=== PATIENT | female | born 1980 | race Caucasian/White ===

== ENCOUNTER → 2020-01-15 14:36 | Outpatient (BNVA) | payer OTHER, SELFPAY | PROVIDERS: Family Provider Internal Medicine; PCP Internal Medicine; Visit Provider Nurse Practitioner Family | DX: Z20.828 Contact with and (suspected) exposure to other viral communicable diseases (principal) | CPT/HCPCS: 87635 ==

== ENCOUNTER 2020-03-05 06:33 | Emergency (ER) | payer SELFPAY ==
--- NOTE | 2020-03-05 06:36 | W.ED.ANXIETY ---
HPI - Anxiety General: Chief Complaint: Allergic Reaction Stated Complaint: allergic rxn Time Seen by Provider: 03/05/20 06:34 Source: patient Mode of arrival: ambulatory Limitations: no limitations History of Present Illness: HPI narrative: 40-year-old female states that she started having itching all over along with feeling like she had shortness of breath. Patient states she believes she is having allergic reaction to something but not sure what it is. She does have a rash. She is quite anxious. Denies any worsening improving factors. Denies any chest pain at this time. She denies any fever. Associated symptoms: Deny chest pain, chills, fever(s), headache(s), nausea or vomiting Review of Systems Const: Denies: fever(s), chills, body aches or change in appetite Eyes: Denies: blurry vision or eye discomfort ENMT: Denies: throat pain or dental pain Card: Denies: chest pain Resp: Denies: dyspnea GI: Denies: abdominal pain, nausea, vomiting or diarrhea : Denies: dysuria Musc: Denies: neck pain or back pain Skin/Breast: Reports: rash Neuro: Denies: headache(s) Psych: Denies: depression Catrachito/Lymph: Denies: easy bruising All/Imm: Denies: urticaria Physical Exam Const: COMMON NORMALS: no acute distress, patient oriented x3 and healthy appearing HENMT: COMMON NORMALS: normocephalic and atraumatic HEAD & SCALP: normocephalic and atraumatic Eye: COMMON NORMALS: Equal, round and reactive pupils present and EOMs intact bilaterally PUPIL: Yes Equal, round and reactive pupils present Neck/C-Spine: COMMON NORMALS: full ROM and supple Chest: COMMONS NORMALS: normal inspection of the chest and normal palpation of entire chest wall Resp: COMMON NORMALS: normal respiratory effort, No retractions, No use of accessory muscles and clear to auscultation bilaterally AUSCULTATION: clear to auscultation bilaterally Cardio: COMMON NORMALS: regular rate, regular rhythm and No murmurs present (Cardio) RATE: regular rate RHYTHM: regular rhythm GI: COMMON NORMALS: Normal to inspection, nondistended, normoactive bowel sounds present, Soft to palpation, non-tender and no masses PALPATION: Yes Soft to palpation Extremity: COMMON NORMALS: normal to inspection and full ROM Neuro: COMMON NORMALS: patient oriented x3, moves all extremities and no focal motor deficits Psych: COMMON NORMALS: mental status grossly normal, Normal thought process present and cooperative THOUGHT PROCESS: Normal thought process present Skin: COMMON NORMALS: no wounds NARRATIVE SKIN EXAM: Urticarial rash to extremities Course Vital Signs: Vital signs: Vital Signs Temperature 98.1 F 03/05/20 06:37 Pulse Rate 89 03/05/20 06:49 Respiratory Rate 20 H 03/05/20 06:49 Blood Pressure 150/87 03/05/20 06:49 Pulse Oximetry 98 03/05/20 06:49 MDM - Anxiety MDM Narrative: Medical decision making narrative: Patient presents with an allergic reaction. Patient feels much improved after Benadryl and steroids. Patient was anxious well and given Ativan. EKG and x-ray here are normal. Her rash is resolved. She is stable for discharge and return if worsening. Imaging Data^: CXR: Attestation: I personally reviewed and interpreted this imaging study as follows: My impression: no acute abnormality EKG Data^: EKG 1: Attestation: I personally reviewed and interpreted this EKG as follows: EKG interpretation date: 03/05/20 EKG interpretation time: 07:00 Interpretation: nsr hr [address] or t wave abnormalities qrs 93 qtc 418 Discharge Plan Discharge Patient Disposition: Home Clinical Impression: Allergic reaction Qualifiers: Encounter type: initial encounter Qualified Code(s): T78.40XA - Allergy, unspecified, initial encounter Condition: Stable Discharge Orders: Discharge Order (Routine); Ordered 03/05/20 Ordered By: Yaron Pruett Referrals: Saadia Contreras DO [Primary Care Provider] - 1-3 days Discharge Diet: Advance as tolerated Discharge Activity: Resume usual activity Patient Instructions: Allergic Reaction Coding Level of Care Code ED Inoculator for Chg Fwd Exam Comprehensive
[2020-03-05 06:37] VITALS: BP 150/100; PULSE 103; RESP 18; TEMP 36.7; O2SAT 100; BMI 27.0
--- NOTE | 2020-03-05 06:46 | XR_ITS ---
WS: [id number] Portable AP upright chest, 03/05/2020 Clinical Data: cp Comparison: AP chest, 08/24/2016. Findings: No nodules, masses or effusions are seen. The heart is normal. The pulmonary vascularity is not increased. No pneumonia or pneumothorax is seen. There is an healed mid shaft fracture of the ri ght clavicle. XR/XR chest 1V portable [id number] Impression: Negative chest.
--- NOTE | 2020-03-05 06:46 | ECG_ITS ---
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 Measurements Intervals [place] Rate: 74 P: 45 VT: 146 QRS: 33 QRSD: 93 T: 38 QT: 390 QTc: 434 Interpretive Statements SINUS RHYTHM Compared to ECG 08/24/2016 23:42:09 No significant changes Electronically Signed On 03-05-2020 17:11:37 CDT by Verena Mckenzie M.D. [email or web address]
[2020-03-05] MEDS: LORazepam 2 mg/mL INJ 1 mL 1 MG IVP (06:47)
[2020-03-05] MEDS: diphenhydrAMINE 50 mg/mL SDV 1mL IVP (06:47)
[2020-03-05 06:49] VITALS: BP 150/87; PULSE 89; RESP 20; O2SAT 98
[2020-03-05 07:40] VITALS: BP 117/75; PULSE 76; RESP 16; O2SAT 96
== END 2020-03-05 07:40 | disposition home or self-care (01) ==
PROVIDERS: Emergency Provider Emergency Medicine; Family Provider Internal Medicine; PCP Internal Medicine
DX: T78.40XA Allergy, unspecified, initial encounter (principal)
CPT/HCPCS: 12345; 71045; 93005; 96374; 96375; 99283; J1200; J2060; J2930

== ENCOUNTER 2024-02-18 08:43 | Emergency (ER) | payer MEDICAID, SELFPAY ==
[2024-02-18 08:52] VITALS: BP 141/84; PULSE 86; TEMP 36.4; O2SAT 99
--- NOTE | 2024-02-18 08:58 | XRR_ITS ---
PROCEDURE INFORMATION: Exam: XR Left Foot Exam date and time: 02/18/2024 9:03 AM Age: 44 years old Clinical indication: Pain; Foot; Left; Additional info: Pain no trauma TECHNIQUE: Imaging protocol: Radiologic exam of the left foot. Views: 3 or more views. COMPARISON: CR (LOW EXM, ) 02/18/2024 9:03 AM FINDINGS: Bones/joints: Normal. Soft tissues: Normal. XR/XR foot LT min 3V* [id number] IMPRESSION: No acute findings.
--- NOTE | 2024-02-18 09:01 | XRR_ITS ---
PROCEDURE INFORMATION: Exam: XR Left Ankle Exam date and time: 02/18/2024 9:03 AM Age: 44 years old Clinical indication: Pain; Ankle; Left TECHNIQUE: Imaging protocol: Radiologic exam of the left ankle. Views: 3 or more views. COMPARISON: CR XR foot LT min 3V* [id number] 02/18/2024 9:03 AM FINDINGS: Bones/joints: Normal. No evidence of fracture or dislocation Soft tissues: Mild soft tissue swelling XR/XR ankle LT min 3V* [id number] IMPRESSION: No evidence of fracture or dislocation. Mild soft tissue swelling
--- NOTE | 2024-02-18 09:01 | W.ED.EXTPRO ---
HPI - Extremity Problem General: Chief complaint: Extremity Problem,Nontraumatic Stated complaint: left pain and can't put pressure on it Time Seen by Provider: 02/18/24 08:49 Source: patient Mode of arrival: ambulatory Limitations: no limitations History of Present Illness: 44-year-old female states she has been having left ankle pain last 2 days. States that it is painful to try to walk on it denies any injuries. States she has had a history of gout states she has no pain at rest does have some pain with palpation denies any warmth denies any fevers. Rates her pain a 3 out of 10 currently Associated symptoms: Deny chest pain, fever(s) or rash Related Data Previous Rx's Medication Instructions Recorded indomethacin 50 mg capsule 50 mg PO BID #14 caps 02/18/24 Allergies Allergy/AdvReac Type Severity Reaction Status Date / Time No Known Allergies Allergy Verified 03/05/20 06:40 Review of Systems Const: Denies: fever(s), chills, body aches or change in appetite ENMT: Denies: throat pain or dental pain Card: Denies: chest pain Resp: Denies: dyspnea GI: Denies: abdominal pain, nausea, vomiting or diarrhea Musc: Reports: extremity pain; Denies: neck pain or back pain Skin/Breast: Denies: rash Neuro: Denies: headache(s) Physical Exam Const: COMMON NORMALS: no acute distress, patient oriented x3 and healthy appearing HENMT: COMMON NORMALS: normocephalic and atraumatic HEAD & SCALP: normocephalic and atraumatic Neck/C-Spine: COMMON NORMALS: full ROM and supple Chest: COMMONS NORMALS: normal inspection of the chest Resp: COMMON NORMALS: normal respiratory effort Cardio: COMMON NORMALS: regular rate, regular rhythm and No murmurs present (Cardio) RATE: regular rate RHYTHM: regular rhythm Extremity: NARRATIVE EXTREMITY EXAM: tenderness to left ankle no swelling and no warmth to touch Neuro: COMMON NORMALS: patient oriented x3, moves all extremities and no focal motor deficits Psych: COMMON NORMALS: mental status grossly normal, Normal thought process present and cooperative THOUGHT PROCESS: Normal thought process present Skin: COMMON NORMALS: no rashes or lesions noted and no wounds GENERAL SKIN EXAM: no rashes or lesions noted Course Vital Signs: Vital signs: Vital Signs Temperature 97.6 F 02/18/24 08:52 Pulse Rate 76 02/18/24 09:27 Blood Pressure 170/92 02/18/24 09:27 Pulse Oximetry 99 02/18/24 09:27 Oxygen Delivery Me thod Room Air 02/18/24 09:27 MDM - Extremity (Nontraumatic) Medical Decision Making Patient presents here with left ankle pain exam here is benign no signs of septic joint patient stable for discharge follow-up PCP return if worsening Medical Records I reviewed the patient's medical records. Lab Data I reviewed the patient's lab results. Radiology Impressions Foot X-Ray 02/18/24 08:58 IMPRESSION: No acute findings. Ankle X-Ray 02/18/24 09:01 IMPRESSION: No evidence of fracture or dislocation. Mild soft tissue swelling All radiology interpretation(s) finalized by discharge Discharge Plan Discharge Patient Disposition: Home Clinical Impression: Ankle pain, left Condition: Stable Prescriptions: New indomethacin 50 mg capsule 50 mg PO BID Qty: 14 0RF Rx Instructions: administer with food or milk Discharge Orders: Discharge ED (Routine); Ordered 02/18/24 Ordered By: Yaron Pruett Discharge Diet: Advance as tolerated Discharge Activity: Resume usual activity Patient Instructions: Arthralgia (ED) Coding Level of Care Code ED Audience Coordinator for Maria Valle
[2024-02-18] MEDS: HYDROcodone-acetaminophen 5-325 mg Tablet 1 TAB PO (09:26)
[2024-02-18 09:27] VITALS: BP 170/92; PULSE 76; O2SAT 99
[2024-02-18 09:38] VITALS: BP 130/92; PULSE 73; RESP 18; O2SAT 98
== END 2024-02-18 09:40 | disposition home or self-care (01) ==
PROVIDERS: Emergency Provider Emergency Medicine
DX: M25.572 Pain in left ankle and joints of left foot (principal)
CPT/HCPCS: 73610; 73630; 99283

== ENCOUNTER 2024-07-30 11:53 | Emergency (ER) | payer MEDICAID, SELFPAY ==
[2024-07-30 12:46] VITALS: BP 151/91; PULSE 82; RESP 17; TEMP 36.6; O2SAT 98; BMI 30.2
--- NOTE | 2024-07-30 13:07 | XR_ITS ---
WS: [id number] Exam: XR elbow RT min 3V* [id number] Date/Time of Exam: 07/30/2024 1:09 PM Reason For Exam: elbow pain No fracture. The joints are preserved. No joint effusion. XR/XR elbow RT min 3V* [id number] IMPRESSION: 1. Negative LEFT elbow.
--- NOTE | 2024-07-30 13:26 | ED_ITS ---
HPI - Extremity Problem General: Chief complaint: Extremity Injury, Upper Stated complaint: rt elbow pain Time Seen by Provider: 07/30/24 13:07 Source: patient Mode of arrival: ambulatory Limitations: no limitations History of Present Illness: 44-year-old female who states that she h as been having right elbow pain for the last month states it is pain over the medial aspect the elbow is much worse with movement and when she fishing rod marker things she states pain sharp in nature rates a 2 out of 10 it is improved with rest denies any injuries. Denies any fevers Associated symptoms: Deny chest pain, fever(s) or rash Related Data Previous Rx's ?Medication ?Instructions ?Recorded indomethacin 50 mg capsule 50 mg PO BID #14 caps 02/17 naproxen 500 mg tablet (Naprosyn) 500 mg PO BID PRN pa in #20 tabs 07/30/24 Allergies Allergy/AdvReac Type Severity Reaction Status Date / Time No Known Allergies Allergy Verified 07/30/24 12:49 Review of Systems Const: Denies: fever(s), chills, body aches or change in appetite ENMT: Denies: throat pain or dental pain Card: Denies: chest pain Resp: Denies: dyspnea GI: Denies: abdominal pain, nausea, vomiting or diarrhea Musc: Reports: extremity pain; Denies: neck pain or back pain Skin/Breast: Denies: rash Neuro: Denies: headache(s) Physical Exam Const: COMMON NORMALS: no acute distress, patient oriented x3 and healthy appearing HENMT: COMMON NORMALS: normocephalic and atraumatic HEAD & SCALP: normocephalic and atraumatic Neck/C-Spine: COMMON NORMALS: full ROM and supple Chest: COMMONS NORMALS: normal inspection of the chest Resp: COMMON NORMALS: normal respiratory effort Cardio: COMMON NORMALS: regular rate RATE: regular rate Extremity: COMMON NORMALS: normal to inspection and full ROM NARRATIVE EXTREMITY EXAM: Tenderness over medial aspect of right elbow no obvious deformity does have some pain with range of motion. Neuro: COMMON NORMALS: patient oriented x3, moves all extremities and no focal motor deficits Psych: COMMON NORMALS: mental status grossly normal, Normal thought process present and cooperative THOUGHT PROCESS: Normal thought process present Skin: COMMON NORMALS: no rashes or lesions noted and no wounds GENERAL SKIN EXAM: no rashes or lesions noted Course Vital Signs: Vital signs: Vital Signs Temperature 98 F 07/30/24 12:46 Pulse Rate 82 07/30/24 12:46 Respiratory Rate 17 07/30/24 12:46 Blood Pressure 151/91 07/30/24 12:46 Pulse Oximetry 98 07/30/24 12:46 Oxygen Delivery Me thod Room Air 07/30/24 12:46 MDM - Extremity (Nontraumatic) Medical Decision Making Patient presents here with right elbow pain is likely a tendinitis will Nic wrap she is take Naprosyn we will get her follow-up with orthopedics. Medical Records I reviewed the patient's medical records. All radiology interpretation(s) finalized by discharge Discharge Plan Discharge Patient Disposition: Home Clinical Impression: Elbow pain, right Condition: Stable Prescriptions: New naproxen [Naprosyn] 500 mg tablet 500 mg PO BID PRN (Reason: pain) Qty: 20 0RF No Action indomethacin 50 mg capsule 50 mg PO BID Qty: 14 0RF Rx Instructions: administer with food or milk Discharge Orders: Discharge ED (Routine); Ordered 07/30/24 Ordered By: Yaron Pruett Referrals: Constantino Alvarez DO [Physician] - 4-7 days Discharge Diet: Advance as tolerated Discharge Activity: Resume usual activity Patient Instructions: Tendinitis (ED), Elbow Strain (ED) Print Language: Guamanian Coding Level of Care Code ED Radiology Special Procedure Tech for Maria Valle
[2024-07-30 13:46] VITALS: BP 137/90; PULSE 83; O2SAT 98
--- NOTE | 2024-08-01 07:11 | DCPLANNER ---
messaged ortho for er f/u
== END 2024-07-30 13:49 | disposition home or self-care (01) ==
PROVIDERS: Emergency Provider Emergency Medicine
DX: M25.561 Pain in right knee (principal)
CPT/HCPCS: 73080; 99283

== ENCOUNTER → 2024-08-06 15:34 | Outpatient (BNVA) | payer MEDICAID, SELFPAY | PROVIDERS: Visit Provider Orthopaedic Surgery | DX: M25.521 Pain in right elbow (principal) | CPT/HCPCS: 73080 ==

== ENCOUNTER 2024-08-16 08:31 | Outpatient (CLI) | payer MEDICAID, SELFPAY ==
--- NOTE | 2024-08-16 08:45 | MRR_ITS ---
PROCEDURE INFORMATION: Exam: MR Right Upper Extremity Joint Without and With Contrast; Elbow Exam date and time: 08/16/2024 9:02 AM Age: 44 years old Clinical indication: Right; Pain posterior elbow since jun 2024. Poss, injured rearranging furniture. ; Additional info: M25.521 - pain in right elbow TECHNIQUE: Imaging protocol: Magnetic resonance imaging of the right upper extremity without and with contrast. Exam focused on the elbow. Contrast material: MULTIHANCE; Contrast volume: 20 ml; Contrast route: INTRAVENOUS (IV); COMPARISON: CR XR elbow RT min 3V* [id number] 08/06/2024 3:57 PM FINDINGS: Bones/joints: Unremarkable. No bone abnormalities. Articular cartilage is normal. No joint effusion. Ulnar (medial) collateral ligament: Unremarkable. No tear. Radial collateral ligament of the elbow: Unremarkable. No tear. Annular ligament of the radius: Unremarkable. No tear. Tendon of the biceps brachii: Unremarkable. No tear. Tendon of the brachialis: Unremarkable. No tear. Triceps tendon: Unremarkable. No tear. Common flexor tendon: Unremarkable. No tear. Common extensor tendon: There is extensive tearing involving the common extensor tendon. The tearing appears to be partial but there is prominent inflammation noted here. Soft tissues: Unremarkable. MR/MR elbow RT wo/w con [id number] IMPRESSION: Extensive partial tearing of the common extensor tendon. Otherwise normal study.
[2024-08-16] MEDS: gadobenate dimeglumine 20 mL vial IV (09:29)
== END 2024-08-16 08:32 | disposition home or self-care (01) ==
PROVIDERS: Visit Provider Orthopaedic Surgery
DX: M25.521 Pain in right elbow (principal); S56.511A Strain of other extensor muscle, fascia and tendon at forearm level, right arm, initial encounter; X58.XXXA Exposure to other specified factors, initial encounter
CPT/HCPCS: 73223; A9577